=== PATIENT | female | born 1995 | race Caucasian/White ===

== ENCOUNTER 2018-11-28 10:33 | Observation (INO) ==
[~2018-11-28 10:33] MED LIST: DIPRIVAN 1% ONE; XYLOCAINE-MPF 2% ONE
[2018-11-28] MEDS ORDERED: PEPCID ONE (11:05)
[2018-11-28] MEDS ORDERED: TRANSDERM-SCOP ONE (11:05)
[2018-11-28] MEDS ORDERED: LR 1,000 ML ONE ×2 (11:06→14:16)
[2018-11-28] MEDS ORDERED: VALIUM ONE (11:06)
[2018-11-28] MEDS ORDERED: SUFENTA ONE (12:08)
[2018-11-28] MEDS ORDERED: LR 1,000 ML IV SCH (16:00)
[2018-11-28] MEDS: HYDROCODONE/APAP 7.5-325/15 ML PO PRN ×2 (16:43→20:39)
[2018-11-28] MEDS: ZOFRAN ODT PO PRN (19:01)
[2018-11-28] MEDS ORDERED: OXYCODONE PO PRN (21:41)
[2018-11-28] MEDS ORDERED: SODIUM CHLORIDE 0.9% INJ ONE (21:45)
[2018-11-28] MEDS ORDERED: PHENERGAN IV ONE (21:45)
[2018-11-28] MEDS ORDERED: DECADRON IV ONE (21:46)
[2018-11-29] MEDS: ZOFRAN ODT PO PRN (08:01)
[2018-11-29] MEDS ORDERED: PERIDEX MT SCH (09:00)
[2018-11-29] MEDS ORDERED: TYLENOL LIQUID PO PRN (11:32)
[2018-11-29 16:03] VITALS: BP 107/73
--- NOTE | 2018-12-09 05:09 | OPERATIVE NOTE ---
PROCEDURE DATE: 11/28/2018 PREOPERATIVE DIAGNOSIS: Chronic tonsillitis refractory to medical therapy. POSTOPERATIVE DIAGNOSIS: Chronic tonsillitis refractory to medical therapy. PROCEDURE: Tonsillectomy.. SURGEON: Matthew Saleh MD ANESTHESIA: General endotracheal. INDICATIONS: The patient is a young lady with a long history of chronic tonsillitis. She has also had a sleep study that reveals very mild obstructive sleep apnea. She is admitted for tonsillectomy and overnight monitoring. DESCRIPTION OF PROCEDURE: Patient was brought to the operating room, placed supine on the operating table. Satisfactory general endotracheal anesthesia was administered. The patient was prepped and draped in the usual manner for tonsillectomy. The Noemí-Keven mouth gag was inserted and positioned from the [place] stand. The tonsils were exposed. The right tonsil was grasped with a straight Allis clamp. The capsule was identified and the Bovie used to incise the palate and dissect the tonsil free from its fossa in the usual manner. Hemostasis was obtained with the suction cautery. The left tonsil was removed in a like manner. Irrigation was performed. The operative site was noted to be dry. The adenoid pad was examined. There was no significant adenoid tissue. No adenoidectomy was performed. This completed what we felt was a very successful procedure. The patient was awakened from anesthesia and taken to the recovery room in satisfactory condition. cc: Matthew Saleh MD
== END 2018-11-29 16:52 | disposition home or self-care (01) ==
LOC: OR 10:33 → DIRADM 10:33 → 4N 16:24
PROVIDERS: ADMIT Otolaryngology; ATTEND Otolaryngology
PROC: ENT.ADN (2018-11-28 12:20)
CPT/HCPCS: 81025; 88304; 94762; 94799; A9270; J1100; J2550; J7120